=== PATIENT | male | born 1960 | race Caucasian/White ===

== ENCOUNTER 2018-04-25 19:17 | Emergency (ER) | payer OTHER ==
[~2018-04-25] VITALS: Ht 172.7 cm; Wt 116.6 kg
[~2018-04-25 19:17] MED LIST: ARMOUR THYROID300 MG; CONSTULOSE10 GM/152; FUROSEMIDE 40 M40 MG; GENERLAC; GLUCOPHAGE XR500 MG; K-DUR10 ME1; OXYCODONE HCL5 M1; PEGASYS180 MCG/1; REBETOL200 MG; TOPROL XL25 MG
[2018-04-25 20:16] LABS: ABSOLUTE NEUTROPHILS 3.6 thou/uL (1.4-8.2); BASOPHILS 0.9 % (0.0-2.0); EOSINOPHILS 2.4 % (0.0-3.0); HEMATOCRIT 42.9 % (42.0-52.0); HEMOGLOBIN 14.5 gm/dL (14.0-18.0); LYMPHOCYTES 15.9 % (24.0-44.0); MCH 32.3 pg (26.0-34.0); MCHC 33.8 g/dL (28.0-37.0); MCV 95.5 fL (80.0-100.0); MONOCYTES 10.2 % (1.0-8.0); POLYS 70.6 % (36.0-66.0); RDW 13.4 % (10.5-14.5); WBC 5.1 thou/uL (4.0-11.0)
[2018-04-25 20:24] LABS: CALCIUM 9.5 mg/dL (8.5-10.1); CREATININE 1.4 mg/dL (0.7-1.3); POTASSIUM 3.7 mmol/L (3.5-5.1)
[2018-04-25 20:25] LABS: URINE BILIRUBIN NEGATIVE (Negative); URINE BLOOD NEGATIVE (Negative); URINE CLARITY CLEAR; URINE COLOR YELLOW; URINE GLUCOSE-RANDOM* 3+ (Negative); URINE KETONES NEGATIVE (Negative); URINE LEUKOCYTES NEGATIVE (Negative); URINE NITRITE NEGATIVE (Negative); URINE PROTEIN (DIPSTICK) NEGATIVE (Negative); URINE SPECIFIC GRAVITY <= 1.005 (1.005-1.035); URINE UROBILINOGEN 0.2 E.U./dl (0.2-1.0)
[2018-04-25 20:30] LABS: ALBUMIN 3.4 g/dL (3.4-5.0); DIRECT BILIRUBIN 0.3 mg/dL (<0.1-0.3); TOTAL BILIRUBIN 0.8 mg/dL (<0.1-1.0); TOTAL PROTEIN 7.6 g/dL (6.4-8.2)
[2018-04-25 20:47] LABS: LARGE PLATELETS FEW; PLATELET COUNT 96 thou/uL (150-400); PLATELET ESTIMATE DECREASED
[2018-04-25] MEDS ORDERED: OXYCODONE HCL20 M1 PO (21:44)
[2018-04-25] MEDS ORDERED: ZOFRAN ODT4 MG DISSOLVE (21:44)
[2018-04-25] MEDS ORDERED: PRILOSEC 20 MG20 MG PO (22:28)
[2018-04-25 23:07] VITALS: BP 146/80
== END 2018-04-25 23:08 | disposition home or self-care (01) ==
LOC: ER 19:17
PROVIDERS: Emergency Medicine
DX: K46.9 Unspecified abdominal hernia without obstruction or gangrene (principal); G89.4 Chronic pain syndrome; K74.60 Unspecified cirrhosis of liver; D69.6 Thrombocytopenia, unspecified; I13.0 Hypertensive heart and chronic kidney disease with heart failure and stage 1 through stage 4 chronic kidney disease, or unspecified chronic kidney disease; E11.22 Type 2 diabetes mellitus with diabetic chronic kidney disease; N18.9 Chronic kidney disease, unspecified; I50.9 Heart failure, unspecified; F32.9 Major depressive disorder, single episode, unspecified; F17.210 Nicotine dependence, cigarettes, uncomplicated

== ENCOUNTER 2018-08-10 16:35 | Emergency (ER) | payer OTHER ==
[~2018-08-10] VITALS: Ht 175.3 cm; Wt 119.8 kg
[~2018-08-10 16:35] MED LIST changes: -FUROSEMIDE 40 M40 MG; +FUROSEMIDE 40 M40 MG PO; +OXYCODONE HCL20 M1 PO; +PRILOSEC 20 MG20 MG PO; +ZOFRAN ODT4 MG DISSOLVE
[2018-08-10 20:25] LABS: ABSOLUTE NEUTROPHILS 6.3 thou/uL (1.4-8.2); BASOPHILS 0.8 % (0.0-2.0); EOSINOPHILS 2.4 % (0.0-3.0); HEMATOCRIT 51.2 % (42.0-52.0); HEMOGLOBIN 17.6 gm/dL (14.0-18.0); LYMPHOCYTES 14.2 % (24.0-44.0); MCH 32.7 pg (26.0-34.0); MCHC 34.3 g/dL (28.0-37.0); MCV 95.2 fL (80.0-100.0); MONOCYTES 10.5 % (1.0-8.0); PLATELET COUNT 127 thou/uL (150-400); POLYS 72.1 % (36.0-66.0); RBC 5.38 mil/uL (4.50-6.00); RDW 13.9 % (10.5-14.5); WBC 8.8 thou/uL (4.0-11.0)
[2018-08-10] MEDS ORDERED: SPIRONOLACTONE50 MG PO (20:28)
[2018-08-10] MEDS ORDERED: SYNTHROID175 MCG PO (20:30)
[2018-08-10] MEDS ORDERED: LANTUS100 UNIT/M SUBQ (20:31)
[2018-08-10] MEDS ORDERED: NOVOLOG100 UNIT/1 SUBQ (20:32)
[2018-08-10 20:34] LABS: CALCIUM 9.9 mg/dL (8.5-10.1); CREATININE 1.8 mg/dL (0.7-1.3); POTASSIUM 4.3 mmol/L (3.5-5.1)
[2018-08-10 20:39] LABS: ALBUMIN 3.8 g/dL (3.4-5.0); TOTAL BILIRUBIN 0.7 mg/dL (<0.1-1.0); TOTAL PROTEIN 8.2 g/dL (6.4-8.2)
[2018-08-10 21:25] LABS: URINE BILIRUBIN NEGATIVE (Negative); URINE BLOOD TRACE (Negative); URINE CLARITY CLEAR; URINE COLOR YELLOW; URINE GLUCOSE-RANDOM* NEGATIVE (Negative); URINE KETONES NEGATIVE (Negative); URINE LEUKOCYTES-REFLEX NEGATIVE (Negative); URINE NITRITE-REFLEX NEGATIVE (Negative); URINE PROTEIN (DIPSTICK) NEGATIVE (Negative); URINE UROBILINOGEN 0.2 E.U./dl (0.2-1.0)
[2018-08-10 23:53] VITALS: BP 145/95
== END 2018-08-10 23:54 | disposition home or self-care (01) ==
LOC: ER 16:35
PROVIDERS: Emergency Medicine
DX: K43.9 Ventral hernia without obstruction or gangrene (principal); G89.29 Other chronic pain; R11.2 Nausea with vomiting, unspecified; F17.210 Nicotine dependence, cigarettes, uncomplicated; E11.9 Type 2 diabetes mellitus without complications; I11.0 Hypertensive heart disease with heart failure; I50.9 Heart failure, unspecified; F32.9 Major depressive disorder, single episode, unspecified; K74.60 Unspecified cirrhosis of liver; Z79.4 Long term (current) use of insulin